=== PATIENT | male | born 1980 | race Caucasian/White ===

== ENCOUNTER → 2018-07-19 | Outpatient (REF) ==
[~2018-07-19] MED LIST: HYDROCHLOROT25 MG PO; PERCOCET 5/325M1 TAB PO
== END | disposition home or self-care (01) | DRG 951 ==
LOC: PAGE 16:00
PROVIDERS: ATTEND Nurse Practitioner Family
DX: Z02.9 Encounter for administrative examinations, unspecified (principal)